=== PATIENT | female | born 1950 | race Two or more races ===

== ENCOUNTER 2018-04-03 07:42 | Outpatient (CLI) | payer OTHER ==
[~2018-04-03 07:42] MED LIST: ANTIVERT; AVANDIA4 MG PO; COREG CR10 MG PO; FOLIC ACID1 MG; GLUCOPHAGE XR500 MG PO; ISORDIL10 MG PO; NOVOLIN N100 UNIT/1; SULAR10 MG PO; VOLTAREN100 GM; ZESTRIL10 MG PO; [UNRECOGNIZED DRUG - OTHER]
== END 2018-04-03 07:45 | disposition home or self-care (01) ==
LOC: SONOGRAMA 07:42 → MAMO-SONO 07:45
DX: R10.84 Generalized abdominal pain (principal)

== ENCOUNTER 2018-04-08 11:51 | Outpatient (CLI) | payer OTHER | END 2018-04-08 14:29 | disposition home or self-care (01) | LOC: MAMO-SONO 11:51 | DX: Z12.31 Encounter for screening mammogram for malignant neoplasm of breast (principal); Z87.898 Personal history of other specified conditions; N60.01 Solitary cyst of right breast ==

== ENCOUNTER → 2018-04-10 | Outpatient (CLI) | payer OTHER | END | disposition home or self-care (01) | LOC: NUCLEAR 08:28 | DX: K80.20 Calculus of gallbladder without cholecystitis without obstruction (principal); R10.9 Unspecified abdominal pain | CPT/HCPCS: 78227; A9537; J2805 ==

== ENCOUNTER 2018-06-11 15:37 | Emergency (ER) | payer OTHER ==
[~2018-06-11] VITALS: Ht 152.4 cm; Wt 71.2 kg
== END 2018-06-11 18:45 | disposition home or self-care (01) ==
LOC: ER 15:37
DX: I10 Essential (primary) hypertension (principal); R42 Dizziness and giddiness

== ENCOUNTER → 2018-06-13 | Emergency (ER) | payer OTHER ==
[~2018-06-13] VITALS: Ht 152.4 cm; Wt 70.3 kg
== END | disposition left against medical advice (07) ==
LOC: ER 20:51
DX: Z53.20 Procedure and treatment not carried out because of patient's decision for unspecified reasons (principal)

== ENCOUNTER → 2018-10-12 | Emergency (ER) | payer OTHER | END | disposition left against medical advice (07) | LOC: ER 01:02 | DX: Z53.20 Procedure and treatment not carried out because of patient's decision for unspecified reasons (principal) ==

== ENCOUNTER 2018-12-13 10:05 | Outpatient (CLI) | payer OTHER | END 2018-12-13 10:07 | disposition home or self-care (01) | LOC: SONOGRAMA 10:05 → MAMO-SONO 10:15 | DX: N94.0 Mittelschmerz (principal); R10.2 Pelvic and perineal pain; N94.89 Other specified conditions associated with female genital organs and menstrual cycle ==

== ENCOUNTER 2018-12-19 12:31 | Emergency (ER) | payer OTHER ==
[~2018-12-19] VITALS: Ht 152.4 cm; Wt 68.0 kg
== END 2018-12-19 17:48 | disposition home or self-care (01) ==
LOC: ER 12:31
DX: K29.70 Gastritis, unspecified, without bleeding (principal)

== ENCOUNTER 2020-10-03 17:10 | Emergency (ER) | payer OTHER ==
[~2020-10-03] VITALS: Ht 152.4 cm; Wt 55.8 kg
[2020-10-03] MEDS ORDERED: CARVEDILOL3.125 M1 PO (17:25)
[2020-10-03] MEDS ORDERED: LOSARTAN POTAS100 MG PO (17:26)
[2020-10-03] MEDS ORDERED: SYNTHROID100 MCG PO (17:27)
[2020-10-03] MEDS ORDERED: INTESTINEX680 M2 PO (19:03)
[2020-10-03] MEDS ORDERED: PEPCID AC20 MG PO (19:03)
[2020-10-03] MEDS ORDERED: AMOX-CLAV 875-1 EACH PO (19:03)
== END 2020-10-03 19:46 | disposition home or self-care (01) ==
LOC: ER 17:10
DX: L03.114 Cellulitis of left upper limb (principal); S51.812A Laceration without foreign body of left forearm, initial encounter; W26.8XXA Contact with other sharp object(s), not elsewhere classified, initial encounter; Y93.89 Activity, other specified; Y92.89 Other specified places as the place of occurrence of the external cause; Y99.8 Other external cause status

== ENCOUNTER 2020-10-05 12:56 | Emergency (ER) | payer OTHER ==
[~2020-10-05] VITALS: Ht 152.4 cm; Wt 55.8 kg
[~2020-10-05 12:56] MED LIST changes: +AMOX-CLAV 875-1 EACH PO; +CARVEDILOL3.125 M1 PO; +INTESTINEX680 M2 PO; +LOSARTAN POTAS100 MG PO; +PEPCID AC20 MG PO; +SYNTHROID100 MCG PO
== END 2020-10-05 19:53 | disposition home or self-care (01) ==
LOC: ER 12:56
DX: L03.114 Cellulitis of left upper limb (principal); S51.812D Laceration without foreign body of left forearm, subsequent encounter; B95.2 Enterococcus as the cause of diseases classified elsewhere; W26.8XXD Contact with other sharp object(s), not elsewhere classified, subsequent encounter; Z03.818 Encounter for observation for suspected exposure to other biological agents ruled out

== ENCOUNTER 2021-08-16 14:33 | Inpatient (IN) | payer OTHER ==
[~2021-08-16] VITALS: Ht 152.4 cm; Wt 59.9 kg
[2021-08-16] MEDS ORDERED: DICLOFENAC35 MG PO (14:59)
[2021-08-16] MEDS ORDERED: FOLIC ACID1 MG PO (15:00)
[2021-08-16] MEDS ORDERED: MECLIZINE HCL25 M1 PO (15:00)
[2021-08-16] MEDS ORDERED: TOPROL XL25 M1 PO (15:00)
[2021-08-16] MEDS ORDERED: FENOFIBRIC ACI105 MG (15:01)
[2021-08-16] MEDS ORDERED: COZAAR100 MG PO (15:01)
[2021-10-03] MEDS ORDERED: XOPENEX0.63 MG/3 IH (13:36)
[2021-10-03] MEDS ORDERED: AMLODIPINE BESY10 MG PO (13:36)
[2021-10-03] MEDS ORDERED: ISOSORBIDE MONO30 MG PO (13:37)
[2021-10-03] MEDS ORDERED: CARVEDILOL6.25 MG PO (13:37)
[2021-10-03] MEDS ORDERED: INTESTINEX680 M1 PO (13:38)
[2021-10-03] MEDS ORDERED: ST. JOSEPH ASPI81 M2 PO (13:38)
[2021-10-03] MEDS ORDERED: THIAMINE HCL100 MG PO (13:39)
[2021-10-03] MEDS ORDERED: VITAMIN D3125 MC2 PO (13:39)
[2021-10-03] MEDS ORDERED: B Complex CAPSULE PO (13:41)
== END 2021-10-03 23:15 | DRG 4 ==
LOC: ER 14:33 → MEDJ 08-17 09:40 → ICU 08-17 09:40 → MEDI 08-17 09:40 → ICU 09-02 22:30 → MEDI 09-21 20:40
PROVIDERS: Otolaryngology; ADMIT Internal Medicine; ATTEND Internal Medicine
PROC: BW40ZZZ Ultrasonography of Abdomen (ICD-10-PCS; 2021-08-17)
PROC: BT4JZZZ Ultrasonography of Kidneys and Bladder (ICD-10-PCS; 2021-08-18)
PROC: 8E0ZXY6 Isolation (ICD-10-PCS; 2021-08-19)
PROC: 02HV33Z Insertion of Infusion Device into Superior Vena Cava, Percutaneous Approach (ICD-10-PCS; 2021-08-21)
PROC: 3E0436Z Introduction of Nutritional Substance into Central Vein, Percutaneous Approach (ICD-10-PCS; 2021-08-21)
PROC: BW21YZZ Computerized Tomography (CT Scan) of Abdomen and Pelvis using Other Contrast (ICD-10-PCS; 2021-08-29)
PROC: 05HM33Z Insertion of Infusion Device into Right Internal Jugular Vein, Percutaneous Approach (ICD-10-PCS; 2021-08-31)
PROC: B543ZZA Ultrasonography of Right Jugular Veins, Guidance (ICD-10-PCS; 2021-08-31)
PROC: 0BH17EZ Insertion of Endotracheal Airway into Trachea, Via Natural or Artificial Opening (ICD-10-PCS; 2021-08-31)
PROC: B24BZZZ Ultrasonography of Heart with Aorta (ICD-10-PCS; 2021-08-31)
PROC: 5A1945Z Respiratory Ventilation, 24-96 Consecutive Hours (ICD-10-PCS; 2021-08-31)
PROC: 4A033R1 Measurement of Arterial Saturation, Peripheral, Percutaneous Approach (ICD-10-PCS; 2021-08-31)
PROC: 4A12X4Z Monitoring of Cardiac Electrical Activity, External Approach (ICD-10-PCS; 2021-09-01)
PROC: 0B110F4 Bypass Trachea to Cutaneous with Tracheostomy Device, Open Approach (ICD-10-PCS; principal; 2021-09-12 13:00)
PROC: 0DH67UZ Insertion of Feeding Device into Stomach, Via Natural or Artificial Opening (ICD-10-PCS; 2021-09-14)
PROC: 3E0G76Z Introduction of Nutritional Substance into Upper GI, Via Natural or Artificial Opening (ICD-10-PCS; 2021-09-14)
PROC: 0DHA4UZ Insertion of Feeding Device into Jejunum, Percutaneous Endoscopic Approach (ICD-10-PCS; 2021-09-29)
PROC: 3E0H76Z Introduction of Nutritional Substance into Lower GI, Via Natural or Artificial Opening (ICD-10-PCS; 2021-09-29)
DX: N17.8 Other acute kidney failure (principal); J96.01 Acute respiratory failure with hypoxia; J81.0 Acute pulmonary edema; I50.31 Acute diastolic (congestive) heart failure; B37.1 Pulmonary candidiasis; I21.4 Non-ST elevation (NSTEMI) myocardial infarction; E87.4 Mixed disorder of acid-base balance; I25.810 Atherosclerosis of coronary artery bypass graft(s) without angina pectoris; L03.114 Cellulitis of left upper limb; A04.72 Enterocolitis due to Clostridium difficile, not specified as recurrent; I30.8 Other forms of acute pericarditis; E44.0 Moderate protein-calorie malnutrition; B37.49 Other urogenital candidiasis; I08.1 Rheumatic disorders of both mitral and tricuspid valves; B96.1 Klebsiella pneumoniae [K. pneumoniae] as the cause of diseases classified elsewhere; I11.0 Hypertensive heart disease with heart failure; D63.8 Anemia in other chronic diseases classified elsewhere; E11.65 Type 2 diabetes mellitus with hyperglycemia; E87.6 Hypokalemia; E83.42 Hypomagnesemia; D72.818 Other decreased white blood cell count; M06.89 Other specified rheumatoid arthritis, multiple sites; E86.0 Dehydration; E87.8 Other disorders of electrolyte and fluid balance, not elsewhere classified; Z20.822 Contact with and (suspected) exposure to COVID-19; Z79.4 Long term (current) use of insulin; R13.12 Dysphagia, oropharyngeal phase

== ENCOUNTER 2021-11-13 14:43 | Emergency (ER) | payer OTHER ==
[~2021-11-13] VITALS: Ht 152.4 cm; Wt 52.2 kg
[~2021-11-13 14:43] MED LIST changes: +AMLODIPINE BESY10 MG PO; +B Complex CAPSULE PO; +CARVEDILOL6.25 MG PO; +COZAAR100 MG PO; +DICLOFENAC35 MG PO; +FENOFIBRIC ACI105 MG; +FOLIC ACID1 MG PO; +INTESTINEX680 M1 PO; +ISOSORBIDE MONO30 MG PO; +MECLIZINE HCL25 M1 PO; +ST. JOSEPH ASPI81 M2 PO; +THIAMINE HCL100 MG PO; +TOPROL XL25 M1 PO; +VITAMIN D3125 MC2 PO; +XOPENEX0.63 MG/3 IH
[2021-11-13] MEDS ORDERED: AMOX-CLAV 875-1 EACH PO (19:48)
== END 2021-11-13 20:18 | disposition home or self-care (01) ==
LOC: ER 14:43
DX: R10.84 Generalized abdominal pain (principal); I10 Essential (primary) hypertension; E11.9 Type 2 diabetes mellitus without complications

== ENCOUNTER 2022-03-21 15:11 | Outpatient (CLI) | payer OTHER | END 2022-03-21 15:25 | disposition home or self-care (01) | LOC: TOM 15:11 | PROVIDERS: ATTEND Psychiatry & Neurology Neurology | DX: G30.1 Alzheimer's disease with late onset (principal) ==

== ENCOUNTER 2022-09-12 07:40 | Outpatient (CLI) | payer OTHER | END 2022-09-12 07:51 | disposition home or self-care (01) | LOC: MAMO-SONO 07:40 | PROVIDERS: ATTEND Internal Medicine Hematology & Oncology | DX: Z12.31 Encounter for screening mammogram for malignant neoplasm of breast (principal); R16.1 Splenomegaly, not elsewhere classified ==

== ENCOUNTER 2022-10-09 09:22 | Outpatient (CLI) | payer OTHER | END 2022-10-09 09:23 | disposition home or self-care (01) | LOC: RAD 09:22 | PROVIDERS: ATTEND Physical Medicine & Rehabilitation | DX: M54.2 Cervicalgia (principal); M54.6 Pain in thoracic spine; M06.9 Rheumatoid arthritis, unspecified ==

== ENCOUNTER 2022-10-16 19:09 | Emergency (ER) | payer OTHER ==
[~2022-10-16] VITALS: Ht 152.4 cm; Wt 52.2 kg
[2022-10-16] MEDS ORDERED: ATORVASTATIN CA20 MG PO (19:47)
[2022-10-16] MEDS ORDERED: LISINOPRIL20 MG PO (19:47)
[2022-10-16] MEDS ORDERED: SERTRALINE20 MG/1 ML PO (19:48)
[2022-10-16] MEDS ORDERED: CARDURA XL4 MG PO (19:48)
[2022-10-16] MEDS ORDERED: CARVEDILOL12.5 MG (19:49)
[2022-10-16] MEDS ORDERED: LIPITOR40 MG PO (19:49)
[2022-10-16] MEDS ORDERED: DRAMAMINE LESS25 MG PO (19:50)
== END 2022-10-17 01:47 ==
LOC: ER 19:09
DX: B34.8 Other viral infections of unspecified site (principal); E11.65 Type 2 diabetes mellitus with hyperglycemia; Z79.4 Long term (current) use of insulin

== ENCOUNTER 2022-12-09 01:13 | Inpatient (IN) | payer OTHER ==
[~2022-12-09] VITALS: Ht 152.4 cm; Wt 81.6 kg
[~2022-12-09 01:13] MED LIST changes: +ATORVASTATIN CA20 MG PO; +CARDURA XL4 MG PO; +CARVEDILOL12.5 MG; +DRAMAMINE LESS25 MG PO; +LIPITOR40 MG PO; +LISINOPRIL20 MG PO; +SERTRALINE20 MG/1 ML PO
--- NOTE | 2022-12-09 03:00 | NUR ---
SE RECIBE PTE LETARIGCA EN [place] DE PRICILLA ACOMPANADA DE FAMILIAR EL CUAL REFIERE TRAER A PTE POR SOB. PTE SE OBSERVA CON DISTRESS RESPIRATORIO, PTE SE COLOCA EN UNIDAD DE CRITICO.
--- NOTE | 2022-12-09 03:02 | NUR ---
SE CONECTA A MONITOR CARDIACO CON OXIMETRIA CONTINUA. SE COLOCA H/L A PTE UTILIZANDO MEDIDAS ASEPTICAS. ORDEN AENTUBACION A PTE, SE NOTIFICA A PERSONAL DE ANESTESIA. PERSONAL DE ANESTESIA COLOCA TUBO ENDOTRAQUEAL 6.5 FIJADO EN . TUBO SE CONECTA A VT MECANICO CON LOS SIGUIENTES PARAMETROS: MODA AC, VT 450, FO2 100%, PEEP 5, PF LT 55, RR 16/MIN.
--- NOTE | 2022-12-09 03:06 | NUR ---
SE SOFIA MUESTRAS DE LABORATORIO A PTE UTILIZANDO MEDDIAS ASEPTICAS. SE COLOCA WOO BAJANDO A GRAVEDAD. SE COLOCA TUBO NGT A PTE EN FOSA LT EL CUAL SE AUSCULTA EN ESTOMAGO Y SE CLAMPEA. SE COLOCAN RESTRICCONES A PTE EN EXTREMIDADES SUPPERIORES. SE MIDEN S/V A PTE Y SE DOCUMENTAN. PTE SE CONTINUA MONITORIANDO POR CAMBIOS.
--- NOTE | 2022-12-09 03:33 | NUR ---
PERSONAL DE TERAPIA RESPIRATORIO REALIZA ABGS A LA HORA LUEGFO DE ENTUBAR A PTE. SE NOTIFICAN RESULTADOS DE ABGS A MD. SE COLOCA FO2 A 50%. PTE SE CONTINUA MONITORIANDO POR CAMBIOS.
--- NOTE | 2022-12-09 07:06 | NUR ---
SE RECIBE PTE FEMINA ENCAMADA E INTUBADA RESTRINGIDA X2 CON DOS HEPARIN LOCK EN MANO DERECHA, CON WOO, CONECTADA A MONITOR CARDICAO. EN ESPERA DEL DR NIKKY MENDOZA.
[2022-12-12] MEDS ORDERED: LATANOPROST2.5 ML (08:33)
[2022-12-12] MEDS ORDERED: LANTUS SOL100 UNIT/1 (08:33)
[2022-12-12] MEDS ORDERED: FENOFIBRATE145 MG (08:33)
[2022-12-12] MEDS ORDERED: OMEPRAZOLE20 MG (08:34)
[2022-12-12] MEDS ORDERED: SYNTHROID100 MCG (08:34)
[2022-12-12] MEDS ORDERED: HUMALOG KW100 UNIT/1 (08:34)
[2022-12-12] MEDS ORDERED: ZANAFLEX2 MG (08:34)
[2022-12-12] MEDS ORDERED: EYE DROPS15 ML (08:34)
[2022-12-12] MEDS ORDERED: METFORMIN HCL500 M4 (08:35)
[2022-12-12] MEDS ORDERED: JARDIANCE10 MG (08:35)
[2022-12-12] MEDS ORDERED: VITAMIN D3125 MC1 (08:35)
[2023-01-04] MEDS ORDERED: AMLODIPINE BESY10 MG PO (13:52)
[2023-01-04] MEDS ORDERED: CARVEDILOL6.25 MG PO (13:52)
[2023-01-04] MEDS ORDERED: CARDURA XL4 MG PO (13:53)
[2023-01-04] MEDS ORDERED: FENOFIBRATE145 MG PO (13:55)
[2023-01-04] MEDS ORDERED: GABAPENTIN250 MG/5 M PO (13:56)
[2023-01-04] MEDS ORDERED: SERTRALINE20 MG/1 ML PO (13:56)
[2023-01-04] MEDS ORDERED: OMEPRAZOLE MAGN20 MG PO (13:58)
[2023-01-04] MEDS ORDERED: SYNTHROID100 MCG PO (14:00)
[2023-01-04] MEDS ORDERED: HUMULIN N100 UNIT/2 SUBCUTANEO (14:00)
[2023-01-04] MEDS ORDERED: CYANOCOBAL1000 MCG/1 IM (14:01)
[2023-01-04] MEDS ORDERED: FOLIC ACID1 MG PO (14:02)
[2023-01-04] MEDS ORDERED: VITAMIN D3125 MC1 PO (14:02)
== END 2023-01-04 20:29 | DRG 207 ==
LOC: ER 01:13 → ICU 10:16 → ICU-2 10:16 → ICU 12-11 14:21 → MEDJ 12-21 17:55
PROVIDERS: ADMIT Internal Medicine; ATTEND Internal Medicine
PROC: 5A1955Z Respiratory Ventilation, Greater than 96 Consecutive Hours (ICD-10-PCS; principal; 2022-12-09)
PROC: 0BH18EZ Insertion of Endotracheal Airway into Trachea, Via Natural or Artificial Opening Endoscopic (ICD-10-PCS; 2022-12-09)
PROC: 4A12X4Z Monitoring of Cardiac Electrical Activity, External Approach (ICD-10-PCS; 2022-12-09)
PROC: 02HV33Z Insertion of Infusion Device into Superior Vena Cava, Percutaneous Approach (ICD-10-PCS; 2022-12-09)
PROC: BW24ZZZ Computerized Tomography (CT Scan) of Chest and Abdomen (ICD-10-PCS; 2022-12-09)
PROC: B24BYZZ Ultrasonography of Heart with Aorta using Other Contrast (ICD-10-PCS; 2022-12-09)
PROC: 3E0F7GC Introduction of Other Therapeutic Substance into Respiratory Tract, Via Natural or Artificial Opening (ICD-10-PCS; 2022-12-09)
PROC: 0DH67UZ Insertion of Feeding Device into Stomach, Via Natural or Artificial Opening (ICD-10-PCS; 2022-12-09)
PROC: 3E0G76Z Introduction of Nutritional Substance into Upper GI, Via Natural or Artificial Opening (ICD-10-PCS; 2022-12-09)
PROC: 0B21XFZ Change Tracheostomy Device in Trachea, External Approach (ICD-10-PCS; 2022-12-18)
PROC: 30243N1 Transfusion of Nonautologous Red Blood Cells into Central Vein, Percutaneous Approach (ICD-10-PCS; 2022-12-29)
PROC: B246YZZ Ultrasonography of Right and Left Heart using Other Contrast (ICD-10-PCS; 2023-01-01)
PROC: BW21YZZ Computerized Tomography (CT Scan) of Abdomen and Pelvis using Other Contrast (ICD-10-PCS; 2023-01-01)
PROC: BD11YZZ Fluoroscopy of Esophagus using Other Contrast (ICD-10-PCS; 2023-01-01)
DX: J96.01 Acute respiratory failure with hypoxia (principal); A41.01 Sepsis due to Methicillin susceptible Staphylococcus aureus; J16.8 Pneumonia due to other specified infectious organisms; J69.0 Pneumonitis due to inhalation of food and vomit; B37.7 Candidal sepsis; J95.850 Mechanical complication of respirator; J95.859 Other complication of respirator [ventilator]; I50.1 Left ventricular failure, unspecified; Z99.11 Dependence on respirator [ventilator] status; D70.9 Neutropenia, unspecified; J39.8 Other specified diseases of upper respiratory tract; E11.22 Type 2 diabetes mellitus with diabetic chronic kidney disease; I12.9 Hypertensive chronic kidney disease with stage 1 through stage 4 chronic kidney disease, or unspecified chronic kidney disease; N18.9 Chronic kidney disease, unspecified; Z79.4 Long term (current) use of insulin; R77.8 Other specified abnormalities of plasma proteins; I25.10 Atherosclerotic heart disease of native coronary artery without angina pectoris; I50.9 Heart failure, unspecified; I11.0 Hypertensive heart disease with heart failure; F43.20 Adjustment disorder, unspecified; M06.9 Rheumatoid arthritis, unspecified

== ENCOUNTER 2023-02-15 09:11 | Outpatient (CLI) | payer OTHER ==
[~2023-02-15 09:11] MED LIST changes: +CYANOCOBAL1000 MCG/1 IM; +EYE DROPS15 ML; +FENOFIBRATE145 MG; +FENOFIBRATE145 MG PO; +GABAPENTIN250 MG/5 M PO; +HUMALOG KW100 UNIT/1; +HUMULIN N100 UNIT/2 SUBCUTANEO; +JARDIANCE10 MG; +LANTUS SOL100 UNIT/1; +LATANOPROST2.5 ML; +METFORMIN HCL500 M4; +OMEPRAZOLE MAGN20 MG PO; +OMEPRAZOLE20 MG; +SYNTHROID100 MCG; +VITAMIN D3125 MC1; +VITAMIN D3125 MC1 PO; +ZANAFLEX2 MG
== END 2023-02-15 09:21 | disposition home or self-care (01) ==
LOC: RAD 09:11
PROVIDERS: ATTEND Internal Medicine Pulmonary Disease
DX: R06.02 Shortness of breath (principal); Z93.0 Tracheostomy status

== ENCOUNTER 2023-05-16 08:19 | Outpatient (CLI) | payer OTHER | END 2023-05-16 08:20 | disposition home or self-care (01) | LOC: LAB 08:19 | DX: D84.1 Defects in the complement system (principal); J30.2 Other seasonal allergic rhinitis; T78.1XXA Other adverse food reactions, not elsewhere classified, initial encounter; M05.9 Rheumatoid arthritis with rheumatoid factor, unspecified ==

== ENCOUNTER 2023-10-18 08:31 | Outpatient (CLI) | payer OTHER | END 2023-10-18 08:36 | disposition home or self-care (01) | LOC: RAD 08:31 | PROVIDERS: ATTEND Internal Medicine Pulmonary Disease | DX: R05.3 Chronic cough (principal); D84.1 Defects in the complement system; Z93.0 Tracheostomy status; Z91.038 Other insect allergy status ==

== ENCOUNTER 2025-10-13 09:36 | Emergency (ER) | payer OTHER ==
[~2025-10-13] VITALS: Ht 162.6 cm; Wt 65.8 kg
[2025-10-13] MEDS ORDERED: 0.9 % SODIUM CHLORIDE 1,000 ML IV ONE (10:00)
[2025-10-13] MEDS ORDERED: ONDANSETRON HCL 2 MG/ML VIAL IV ONE (10:15)
[2025-10-13 11:05] LABS: BASO % 0.4 % (0.1-1.2); EOS # 0.11 (0.04-0.54); EOS % 2.4 % (0.7-7.0); LYMPH # 0.34 (1.18-3.74); LYMPH % 7.5 % (19.3-53.1); MEAN PLATELET VOLUME 10.60 fl (9.4-12.4); MONO # 0.17 (0.24-0.82); MONO % 3.8 % (4.7-12.5); NEUT # 3.86 (1.56-6.13); NEUT % 85.2 % (34.0-71.1); RED CELL DISTRIBUTION WIDTH 12.8 % (11.6-14.4)
[2025-10-13 11:32] LABS: BUN CREA RATIO 18.0 (7.0-25.0); CREATININE SERUM 1.87 mg/dL (0.55-1.02); GFR 26.25; OSMOLALITY SERUM 295.0 MOSM/KG (275-295)
[2025-10-13 11:37] LABS: GLUCOSE FASTING 221.0 mg/dL (65-100)
[2025-10-13 11:58] LABS: COVID-19 AG NEGATIVE (NEGATIVE)
[2025-10-13] MEDS ORDERED: INSULIN LISPRO 1,000 UNIT/10 ML UNITS SUBCUTANEO ONE (12:15)
== END 2025-10-13 14:14 | disposition home or self-care (01) ==
LOC: ER 09:36
PROVIDERS: Emergency Medicine
DX: J20.9 Acute bronchitis, unspecified (principal); R06.02 Shortness of breath; R05.8 Other specified cough; Z20.822 Contact with and (suspected) exposure to COVID-19; I10 Essential (primary) hypertension; E11.9 Type 2 diabetes mellitus without complications; Z79.84 Long term (current) use of oral hypoglycemic drugs; Z91.038 Other insect allergy status
CPT/HCPCS: 36415; 71046; 82803; 93005; 96365; 96366; 99283; J2405; J7030

== ENCOUNTER 2025-11-06 08:57 | Outpatient (CLI) | payer OTHER | END 2025-11-06 09:12 | disposition home or self-care (01) | LOC: TOM 08:57 | PROVIDERS: ATTEND Internal Medicine | DX: R10.9 Unspecified abdominal pain (principal); M25.551 Pain in right hip ==